=== PATIENT | female | born 1995 | race Caucasian/White ===

== ENCOUNTER → 2024-02-17 08:03 | Outpatient (REF) | payer BC, SELFPAY | LOC: WDC 08:03 | PROVIDERS: ATTENDING PHYSICIAN Nurse Practitioner Family | DX: N63.20 Unspecified lump in the left breast, unspecified quadrant (principal) | CPT/HCPCS: 76642 ==

== ENCOUNTER 2024-10-21 21:23 | Emergency (ER) | payer OTHER, SELFPAY ==
[2024-10-21 21:31] VITALS: BP 155/108
[2024-10-21 21:52] LABS: % Basophils 0.7 % (0-2); % Eosinophils 2.3 % (0-6); % Immature Granulocytes 0.4 % (0-0.5); % Lymphocytes 26.9 % (20.5-51.1); % Monocytes 6.9 % (1.7-9.3); % Neutrophils 62.8 % (42.2-75.2); Absolute Basophils 0.1 10^3/uL (0-0.2); Absolute Eosinophils 0.3 10^3/uL (0-0.7); Absolute Immature Granulocytes 0.1 10^3/uL (0-0.05); Absolute Lymphocytes 3.4 10^3/uL (1.2-3.4); Absolute Monocytes 0.9 10^3/uL (0.1-0.6); Hematocrit 41.4 % (37.0-47.0); Hemoglobin 13.8 g/dL (12.0-16.0); Mean Corp Hgb Conc. 33.3 g/dL (33.0-37.0); Mean Corpuscular Hgb 29.7 pg (27.0-31.0); Mean Corpuscular Volume 89.2 fL (81.0-99.0); Mean Platelet Volume 10.2 fL (7.4-10.4); Nucleated Red Blood Cells % 0 %; Platelet Count 240 10^3/uL (130-400); Red Blood Cell Count 4.64 10^6/uL (4.20-5.40); Red Cell Dist. Width 11.8 % (11.5-14.5); White Blood Cell Count 12.7 10^3/uL (4.8-10.8)
[2024-10-21 22:06] LABS: HCG, Serum Qualitative Screen Negative
[2024-10-21 22:11] LABS: ALT (SGPT) 32 U/L (0-35); AST (SGOT) 25 U/L (14-36); Albumin 5.2 g/dl (3.5-5.0); Alkaline Phosphatase 35 U/L (38-126); Blood Urea Nitrogen 20 mg/dl (7-17); Calcium 9.7 mg/dl (8.4-10.2); Carbon Dioxide 26 mmol/L (22-30); Chloride 98 mmol/L (98-107); Glucose 94 mg/dl (70-99); Potassium 4.1 mmol/L (3.5-5.1); Sodium 137 mmol/L (135-145); Total Bilirubin 0.4 mg/dl (0.2-1.3); Total Protein 7.9 g/dl (6.3-8.2); eGFR > 60.00
[2024-10-21 22:14] LABS: Troponin I < 0.012 ng/ml
--- NOTE | 2024-10-21 23:07 | ED.GENMED ---
History of Present Illness
General
Chief Complaint: Chest Pain
Source: patient
Exam Limitations: none
Time Seen by Provider: 10/21/24 22:53
History of Present Illness
History of Present Illness:
This is a 29 year old female that comes in with c/o chest pain. State that it may be anxiety as she felt a lump in he abd which the PCP told her may be a lipoma. States that tonight at 7:15pm she felt SOB and when she moved she had discomfort and
when she took a deep breath. States that she had a headache but this was gone. Denies any fever, chills, SOB, abd pain, nausea, vomiting, diarrhea, dizziness, urinary burning.
Past History
Past History
ED Past Medical History: Hypercholesterolemia and Psychiatric (Anxiety, )
ED Past Surgical History: Orthopedic (Right elbow surgery)
Social History
Tobacco: Non-smoker
Alcohol: None
Drug: None
Personal:
Living: with family
Review of Systems
Review of Systems
All Other Systems: ROS reviewed and negative except as documented in HPI and ROS
Constitutional: Reports no symptoms; Denies fever or chills
EENT: Reports no symptoms
Respiratory: Reports trouble breathing; Denies cough
Cardiac: Reports chest pain
ABD/GI: Reports no symptoms; Denies abdominal pain, nausea, vomiting or diarrhea
: Reports no symptoms; Denies dysuria, frequency or urgency
Musculoskeletal: Reports no symptoms
Skin: Reports no symptoms
Neurological: Reports headache; Denies dizzy
Psychiatric: Reports no symptoms
Phy Exam
General Physical Exam
General Presentation: well appearing and no apparent distress
General age: appears stated age
General Skin: warm and dry
General Habitus: normal
General Mental: alert
General Hydration: appears well hydrated
ENT Exam
ENT Exam: TM's normal, pharynx normal and neck supple
Eye Exam
Eye Exam: EOMI
Cardiovascular Exam
Cardiovascular Exam: regular rate/rhythm, no edema, no murmur and normal peripheral pulses
Pulmonary Exam
Pulmonary Exam: lungs clear, no respiratory distress, no rales, chest non tender, no crackles, no rhonchi, no wheezing and no cough
Gastrointestinal Exam
Gastrointestinal Exam: normal bowel sounds, non tender, soft, no organomegaly, no pulsatile mass and non distended
Musculoskeletal Exam
Musculoskeletal Exam: full ROM and no edema
Skin Exam
Skin Exam: normal color, warm/dry, no rash and no petechia
Scores
Heart Score for Chest Pain Patients
STEMI patient?: No
History: Slightly or Non-Suspicious
ECG: Normal
Age: </= 45 years
Risk Factors: No Risk Factors
Troponin: </= Normal Limit
Heart Score for Chest Pain Patients: 0
Heart Score Risk: 2.5% MACE over next 6 weeks
Course
Orders/Labs/Results
Orders:
Orders
10/21/24 21:24
Electrocardiogram (*1) Urgent
Reason for Study: Chest Pain
EKG- Treatment ONCE
Test Result ONCE
CR Chest - 2 Views Urgent
Comment:
Reason For Exam: chest pain
10/21/24 21:44
Complete Blood Count/With Diff Urgent
Comprehensive Metabolic Panel Urgent
HCG, Serum Qualitative Screen Urgent
Troponin I Urgent
10/21/24 23:25
D-Dimer Urgent
10/22/24 00:44
Troponin I Urgent
Abnormal Lab Results
10/21/24
21:44
WBC 12.7 H 10^3/uL
(4.8-10.8)
Abs Immat Gran (auto) 0.1 H 10^3/uL
(0-0.05)
Absolute Neuts (auto) 8.0 H 10^3/uL
(1.4-6.5)
Absolute Monos (auto) 0.9 H 10^3/uL
(0.1-0.6)
BUN 20 H mg/dl
(7-17)
Alkaline Phosphatase 35 L U/L
(38-126)
Albumin 5.2 H g/dl
(3.5-5.0)
10/21/24 21:44
10/21/24 21:44
Leukocytosis, Dehydration. Alk phos slightly low. Albumiin slightly elevated. Both Troponin <0.012, D-dimer 0.34,
Vital Signs
Initial and Last Documented VS:
Initial Vital Signs
Temp Pulse Resp BP Pulse Ox
98.2 F 110 18 155/108 100
10/21/24 21:31 10/21/24 21:31 10/21/24 21:31 10/21/24 21:31 10/21/24 21:31
Last Documented Vital Signs
Temp Pulse Resp BP Pulse Ox
98.2 F 93 18 124/89 98
10/21/24 21:31 10/22/24 00:28 10/21/24 21:31 10/22/24 00:28 10/22/24 00:28
MDM/Problems Addressed
Differential Diagnosis Includes:
Anxiety, Musculoskeletal pain
MDM/Problems Addressed:
This is a 29 year old female that comes in with c/o chest pain. State that it may be due to anxiety as he found a lump in her abd and the PCP told her it was a lipoma. State that it hurts when she moves or takes a deep breath.
Will check labs, Chest x-ray.
Explained to patient that her WBC are slightly elevated but this can go up with anxiety. Chest x-ray is normal. along with her D-dimer and Troponin. Encouraged patient to increase her water intake to 8-8oz glasses daily. Ibuprofen as needed for any
discomfort. Return with any concerns.
Chronic conditions affecting care: Psychiatric illness (Anxiety)
Acute Exacerbation and/or Progression of Chronic Illness: Psychiatric illness (Anxiety)
*Radiology
Radiology exam reviewed: preliminary read by ED provider (Chest- negative for active disease)
*Pulse Oximetry
Patient hypoxic: no
*EKG
Interpreted by ED Provider?: Yes
Heart Rate: 89
Rate: normal
Rhythm: sinus arrhythmia
Rentz: normal axis
Interval: normal interval
QRS Pattern: normal QRS
Ischemia: no ischemia
*I&C Tech Interpretation
Rate: I&C Tech- N/A
*Critical Care Note
Total Time (30-74mins, 75-104mins- exclusive of procedures): Not Applicable
ED Attending Note
-
Portions of this chart may have been created with voice recognition software.� Occasional wrong word or��sound alike� substitutions may have occurred due to the inherent limitations of voice recognition software.
Discharge Plan
Departure
Patient Disposition: Home (Routine Discharge)
Date of Disposition: 10/22/24
Time of Disposition: 01:47
Patient with high blood pressure during this ER visit?: No
Condition: Good
Covid-19: Not Applicable
Discharge Problem:
Chest pain, musculoskeletal
Instructions: Anxiety in adults - ED discharge instructions, Musculoskeletal Pain
Prescriptions:
No Action
cetirizine [Zyrtec] 10 mg Tablet
10 mg PO DAILY PRN (Reason: seasonal allergies )
prenat.vits,robert,[id number] Tablet
1 tab PO DAILY
docusate sodium 100 mg Capsule
100 mg PO BID Qty: 0 0RF
ferrous sulfate [FeroSul] 325 mg (65 mg iron) Tablet
325 mg PO BID Qty: 0 0RF
acetaminophen 325 mg Tablet
650 mg PO Q4HPRN PRN (Reason: mild pain) Qty: 0 0RF
ibuprofen 600 mg Tablet
600 mg PO Q6HPRN PRN (Reason: moderate pain/cramps) Qty: 45 0RF
Referrals:
Liza Sun MD [Family Provider] - Call in 1-3 days for appt
Activity Restrictions/Additional Instructions:
As discussed, your blood work shows that you are slightly dehydrated. Please increase your water intake to 8-8oz glasses daily. Your Chest X-ray is normal. Your D-dimer is negative and both Troponin which are specific for the heart are negative.
This may be related to your anxiety and Musculoskeletal as you have increased pain with movement. Please increase your water intake to 8-8oz glasses daily. You may use Ibuprofen 600mg every 6 hours with food for pain. Follow up with the family
doctor for recheck. IF YOU HAVE INCREASED OR CHANGING PAIN, OR YOU HAVE ANY OTHER CONCERNS PLEASE RETURN TO THE EMERGENCY ROOM
Interventions
Interventions:
*Risk Screen - Suicide Last Done: 10/21/24 21:35
*General Assessment Last Done: 10/21/24 21:35
*Neglect/Abuse Screening Last Done: 10/21/24 21:35
ED- Cardiac Assessment Last Done: 10/21/24 23:36
Discharge Date and Time
Print Language: BULGARIAN
[2024-10-21 23:48] LABS: D-Dimer 0.34 ug/mlFEU (0.00-0.50)
[2024-10-22 00:28] VITALS: BP 124/89
[2024-10-22 01:21] LABS: Troponin I < 0.012 ng/ml
== END 2024-10-22 02:03 | disposition home or self-care (01) ==
LOC: EMR 21:23
PROVIDERS: Clinical Nurse Specialist Family Health; Emergency Medicine; EMERGENCY PHYSICIAN Student in an Organized Health Care Education/Training Program; FAMILY PHYSICIAN Student in an Organized Health Care Education/Training Program
DX: R07.89 Other chest pain (principal); R06.02 Shortness of breath; R51.9 Headache, unspecified; E86.0 Dehydration; R19.00 Intra-abdominal and pelvic swelling, mass and lump, unspecified site; F41.9 Anxiety disorder, unspecified; E78.00 Pure hypercholesterolemia, unspecified
CPT/HCPCS: 99283; 71046; 80053; 84484; 84703; 85025; 85379; 93005

== ENCOUNTER 2024-10-24 13:08 | Emergency (ER) | payer OTHER, SELFPAY ==
[2024-10-24 13:12] VITALS: BP 147/95
--- NOTE | 2024-10-24 14:58 | ED.GENMED ---
History of Present Illness
General
Chief Complaint: Abdominal Pain
Source: patient
Exam Limitations: none
Time Seen by Provider: 10/24/24 14:16
Nursing documentation reviewed up to this point in time: agreed with
History of Present Illness
History of Present Illness:
29-year-old female presenting to the emergency department today with concerns of a lump to the left upper quadrant also has discomfort to the area worsening over the past week or so. Denies any chest pain shortness of breath any changes in bowel
movements or urination. Denies any vomiting.
Past History
Past History
ED Past Medical History: Hypercholesterolemia and Psychiatric (Anxiety, )
ED Past Surgical History: Orthopedic (Right elbow surgery)
Social History
Tobacco: Non-smoker
Alcohol: None
Drug: None
Personal:
Living: with family
Review of Systems
Review of Systems
Allergies reviewed?: Yes
All Other Systems: ROS reviewed and negative except as documented in HPI and ROS
Phy Exam
Physical Exam
Physical Exam:
GENERAL: Alert , in no apparent distress
EYE: pupils equal and reactive
NECK: Supple, no significant adenopathy.
ENT: o/p clr, mmm.
CARDIAC: Regular rate and rhythm .
LUNGS: Clear breath sounds bilaterally, no acute respiratory distress, no wheezes/rales/rhonchi
ABDOMEN: Small lump to the left upper quadrant some tenderness to the area. Otherwise remainder of the abdomen soft, without focal tenderness, no r/g, no cvat
NEUROLOGICAL: Alert and oriented, no focal neuro deficits
SKIN: Warm and dry, skin intact.
MUSCULOSKELETAL: No edema, well perfused.
PSYCH: Normal and appropriate interaction.
Course
Orders/Labs/Results
Orders:
Orders
10/24/24 14:42
CT Abd/Pel (IV only)-DH only Urgent
Comment:
Reason For Exam: luq pain
10/24/24 14:44
Test Result ONCE
10/24/24 15:06
Beta Hcg Serum Qualitative Screen [HCG, Serum Qualitative Screen] Urgent
Complete Blood Count/With Diff Urgent
Comprehensive Metabolic Panel Urgent
10/24/24 15:10
Urinalysis Reflex To Culture Urgent
Date Specimen was Collected: 10/24/24
Time Specimen was Collected: 15:06
Urine Microscopic Reflex Cult Urgent
Abnormal Lab Results
10/24/24 10/24/24
15:06 15:10
WBC 11.4 H 10^3/uL
(4.8-10.8)
Absolute Neuts (auto) 8.5 H 10^3/uL
(1.4-6.5)
Absolute Monos (auto) 0.7 H 10^3/uL
(0.1-0.6)
Lymphocytes % 17.3 L %
(20.5-51.1)
Albumin 5.2 H g/dl
(3.5-5.0)
Ur Occult Blood Reflex 4+ A
(Negative)
10/24/24 15:06
10/24/24 15:06
Vital Signs
Initial and Last Documented VS:
Initial Vital Signs
Temp Pulse Resp BP Pulse Ox
98.4 F 89 18 147/95 99
10/24/24 13:12 10/24/24 13:12 10/24/24 13:12 10/24/24 13:12 10/24/24 13:12
Last Documented Vital Signs
Temp Pulse Resp BP Pulse Ox
98.4 F 89 18 147/95 99
10/24/24 13:12 10/24/24 13:12 10/24/24 13:12 10/24/24 13:12 10/24/24 13:12
MDM/Problems Addressed
MDM/Problems Addressed:
39-year-old female presenting to the emergency department today with concerns of left upper quadrant lump that she noticed over the past week slowly worsening over the past week and also noticing more discomfort. Reproducible to palpation. Unclear
specific diagnosis based upon examination. A small lump is palpable deep to the subcutaneous tissue. CT scan was obtained that did not show any emergent pathology. Patient does appear stable for outpatient follow-up for this. Return precautions
given.
*Critical Care Note
Total Time (30-74mins, 75-104mins- exclusive of procedures): Not Applicable
ED Attending Note
-
Portions of this chart may have been created with voice recognition software.� Occasional wrong word or��sound alike� substitutions may have occurred due to the inherent limitations of voice recognition software.
Discharge Plan
Departure
Patient Disposition: Home (Routine Discharge)
Date of Disposition: 10/24/24
Time of Disposition: 17:40
Patient with high blood pressure during this ER visit?: No
Condition: Good
Covid-19: Not Applicable
Discharge Problem:
Abdominal wall mass
Prescriptions:
No Action
cetirizine [Zyrtec] 10 mg Tablet
10 mg PO DAILY PRN (Reason: seasonal allergies )
prenat.vits,robert,lns-nqji-huzfx Tablet
1 tab PO DAILY
docusate sodium 100 mg Capsule
100 mg PO BID Qty: 0 0RF
ferrous sulfate [FeroSul] 325 mg (65 mg iron) Tablet
325 mg PO BID Qty: 0 0RF
acetaminophen 325 mg Tablet
650 mg PO Q4HPRN PRN (Reason: mild pain) Qty: 0 0RF
ibuprofen 600 mg Tablet
600 mg PO Q6HPRN PRN (Reason: moderate pain/cramps) Qty: 45 0RF
Referrals:
Liza Sun MD [Family Provider] -
Activity Restrictions/Additional Instructions:
You came to the emergency department today for concerns of a lump to your left upper quadrant of your abdomen. Even a CT scan without emergent findings. Please follow-up closely as an outpatient for further assessment. Return to the emergency
department any worsening, new or concerning symptoms.
Interventions
Interventions:
*Risk Screen - Suicide Last Done: 10/24/24 13:12
*General Assessment Last Done: 10/24/24 13:12
*Neglect/Abuse Screening Last Done: 10/24/24 13:12
*ED COVID-19 Vaccine History Last Done: 10/24/24 13:12
Discharge Date and Time
Print Language: SRI LANKAN
[2024-10-24 15:12] VITALS: BMI 32.4
[2024-10-24 15:19] LABS: % Basophils 0.7 % (0-2); % Eosinophils 0.7 % (0-6); % Immature Granulocytes 0.4 % (0-0.5); % Lymphocytes 17.3 % (20.5-51.1); % Monocytes 6.5 % (1.7-9.3); % Neutrophils 74.4 % (42.2-75.2); Absolute Basophils 0.1 10^3/uL (0-0.2); Absolute Eosinophils 0.1 10^3/uL (0-0.7); Absolute Monocytes 0.7 10^3/uL (0.1-0.6); Absolute Neutrophils 8.5 10^3/uL (1.4-6.5); Hematocrit 41.8 % (37.0-47.0); Mean Corp Hgb Conc. 33.5 g/dL (33.0-37.0); Mean Corpuscular Hgb 29.5 pg (27.0-31.0); Mean Corpuscular Volume 88.2 fL (81.0-99.0); Mean Platelet Volume 10.2 fL (7.4-10.4); Nucleated Red Blood Cells % 0 %; Platelet Count 239 10^3/uL (130-400); Red Blood Cell Count 4.74 10^6/uL (4.20-5.40); Red Cell Dist. Width 11.8 % (11.5-14.5); White Blood Cell Count 11.4 10^3/uL (4.8-10.8)
[2024-10-24 15:32] LABS: HCG, Serum Qualitative Screen Negative
[2024-10-24 15:33] LABS: Urine Albumin Negative (Neg - Trace); Urine Bilirubin Negative (Negative); Urine Character Clear (Clear); Urine Color Yellow; Urine Glucose Negative (Negative); Urine Ketone Negative (Negative); Urine Leukocyte Negative (Negative); Urine Nitrite Negative (Negative); Urine Occult Blood 4+ (Negative); Urine Urobilinogen Negative (Neg - 1+); Urine pH 6.5 (5.0-9.0)
[2024-10-24 15:35] LABS: ALT (SGPT) 29 U/L (0-35); AST (SGOT) 26 U/L (14-36); Albumin 5.2 g/dl (3.5-5.0); Alkaline Phosphatase 41 U/L (38-126); Blood Urea Nitrogen 11 mg/dl (7-17); Calcium 9.7 mg/dl (8.4-10.2); Carbon Dioxide 29 mmol/L (22-30); Chloride 102 mmol/L (98-107); Estimated Creatinine Clearance > 125 ml/min; Glucose 85 mg/dl (70-99); Sodium 140 mmol/L (135-145); Total Bilirubin 0.6 mg/dl (0.2-1.3); Total Protein 7.9 g/dl (6.3-8.2); eGFR > 60.00
[2024-10-24 16:10] LABS: Urine Red Blood Cell 0-2 /HPF (0-2); Urine White Cell 0-2 /HPF (0-5)
== END 2024-10-24 17:58 | disposition home or self-care (01) ==
LOC: EMR 13:08
PROVIDERS: Physician Assistant; EMERGENCY PHYSICIAN Emergency Medicine; FAMILY PHYSICIAN Student in an Organized Health Care Education/Training Program
DX: R19.02 Left upper quadrant abdominal swelling, mass and lump (principal); E78.00 Pure hypercholesterolemia, unspecified; F41.9 Anxiety disorder, unspecified
CPT/HCPCS: 99284; 74177; 80053; 81003; 81015; 84703; 85025; Q9967

== ENCOUNTER → 2024-11-23 07:25 | Outpatient (REF) | payer OTHER, SELFPAY | LOC: HWRAD 07:25 | PROVIDERS: ATTENDING PHYSICIAN Surgery; FAMILY PHYSICIAN Student in an Organized Health Care Education/Training Program | DX: R22.2 Localized swelling, mass and lump, trunk (principal) | CPT/HCPCS: 76705 ==

== ENCOUNTER → 2024-12-09 06:57 | Outpatient (REF) | payer OTHER, SELFPAY | LOC: RAD 06:57 | PROVIDERS: ATTENDING PHYSICIAN Student in an Organized Health Care Education/Training Program | DX: D17.1 Benign lipomatous neoplasm of skin and subcutaneous tissue of trunk (principal) | CPT/HCPCS: 76705 ==

== ENCOUNTER → 2024-12-28 14:00 | Outpatient (REF) | payer OTHER, SELFPAY | LOC: WDC 14:00 | PROVIDERS: ATTENDING PHYSICIAN Nurse Practitioner Family; FAMILY PHYSICIAN Student in an Organized Health Care Education/Training Program | DX: N64.4 Mastodynia (principal); N63.21 Unspecified lump in the left breast, upper outer quadrant | CPT/HCPCS: 76642 ==

== ENCOUNTER → 2025-04-28 07:44 | Outpatient (REF) | payer OTHER, SELFPAY | LOC: WDC 07:44 | PROVIDERS: ATTENDING PHYSICIAN Nurse Practitioner Family; FAMILY PHYSICIAN Student in an Organized Health Care Education/Training Program | DX: Z12.39 Encounter for other screening for malignant neoplasm of breast (principal) | CPT/HCPCS: 76641 ==